=== PATIENT | male | born 1980 | race Caucasian/White ===

== ENCOUNTER 2024-06-05 00:35 | Emergency (ER) | payer OTHER, SELFPAY ==
[2024-06-05 00:38] VITALS: BP 128/84
[2024-06-05 00:57] VITALS: BMI 25.6
--- NOTE | 2024-06-05 01:15 | EDRN ---
About 10 minutes after pt's workout yesterday afternoon, pt developed abdominal pain which has been constant and is getting worse. Pt took ibuprofen which did not help the pain. Pt notes pain worse when he stands up straight. Pt denies cp, sob,
fever/chills/cough, n/v/d/c, urinary symptoms, weakness, dizziness. Last BM 2 hours ago.
[2024-06-05 01:17] LABS: Urine Albumin Trace (Neg - Trace); Urine Bilirubin Negative (Negative); Urine Character Clear (Clear); Urine Color Yellow; Urine Glucose Negative (Negative); Urine Ketone Negative (Negative); Urine Leukocyte Negative (Negative); Urine Nitrite Negative (Negative); Urine Occult Blood Negative (Negative); Urine Urobilinogen Negative (Neg - 1+)
--- NOTE | 2024-06-05 01:19 | ED.GENMED ---
History of Present Illness
<HONG Noel - Last Filed: 06/05/24 03:28>
General
Chief Complaint: Abdominal Pain
Source: patient
Time Seen by Provider: 06/05/24 00:43
History of Present Illness
History of Present Illness:
This is a 44 y/o male without significant PMH who presents to the ED with CC of abdominal pain. Pt admits the periumbilical pain that began after he worked out this afternoon and was driving home he thought he had an upset stomach. He denies doing
anything out of the ordinary at the gym and states it was his usual workout. He took 200mg of Ibuprofen at 6pm and 400mg at 9pm without any improvement in pain. He drove himself to the ED and states that bumps in the road made the pain worse (8/10).
Current pain while lying with HOB at 45 degrees is 5/10. He denies any radiation of the pain. He met with a provider ace via Telehealth who suggested it was MSK related. He tried to go to sleep earlier tonight at home but could not find a
comfortable position and decided to come to the ED. Admits to eating a meal prior to coming to the ED without any worsening in sx. Denies any past abdominal surgeries. Linear scar on inferior chest from excision of BCC. Denies tobacco use. Admits to
social alcohol use 1-2x per wk. Denies F/N/V, back pain, testicular pain, chest pain, headache, palpitations, dyspnea and diarrhea.
Phy Exam
<HONG Noel - Last Filed: 06/05/24 03:28>
Physical Exam
Physical Exam:
Skin: Organ, soft, well-hydrated; turgor with instant recoil
Head: Atraumatic, normocephalic; scalp, pink freely moveable without tenderness
Eyes: sclerae non-icteric; PERRLA; EOMI; no lid lag; red reflex present
Chest and Lungs: muscle and respiratory effort symmetric without use of accessory muscles; vesicular breath sounds without adventitious sounds; even, quiet breathing; linear fibrotic plaque on left inferior chest
Heart: No lifts or heaves visible; regular rate and rhythm; No murmurs, rubs or gallops
PV: radial, dorsalis pedis and posterior tibial pulses all intact bilaterally; no edema, swelling, varicosities or tenderness in LE
Abd: soft, flat, non-distended abdomen; aorta midline with no visible pulsation; normoactive bowel sounds; mild tenderness on palpation periumbilical and epigastric; no CVA tenderness
General Physical Exam
General Presentation: well appearing
General age: appears stated age
General Skin: warm and dry
General Habitus: normal
General Mental: alert
General Hydration: appears well hydrated
Course
<Karen Mendez, [facility] - Last Filed: 06/05/24 03:28>
Orders/Labs/Results
Orders:
Orders
06/05/24 01:05
Complete Blood Count/With Diff Urgent
Comprehensive Metabolic Panel Urgent
Lipase Urgent
06/05/24 01:11
Urinalysis Reflex To Culture Urgent
Date Specimen was Collected: 06/05/24
Time Specimen was Collected: 01:10
06/05/24 01:31
Ketorolac [Toradol] 30 mg IM NOW STA
06/05/24 01:32
Iohexol [Omnipaque] See Protocol PO NOW STA
06/05/24 01:33
CT Abd/pel W Iv And Oral Contr Urgent
Comment:
Reason For Exam: periumiblical abdominal pain x 1 day-progressive
06/05/24 01:41
Ketorolac [Toradol] 30 mg IV NOW STA
Abnormal Lab Results
06/05/24
01:05
RBC 4.36 L 10^6/uL
(4.70-6.10)
Hct 38.8 L %
(39.0-52.0)
MCH 31.4 H pg
(27.0-31.0)
AST 88 H U/L
(17-59)
06/05/24 01:05
06/05/24 01:05
Vital Signs
Initial and Last Documented VS:
Initial Vital Signs
Pulse Resp BP Pulse Ox
64 18 128/84 99
06/05/24 00:38 06/05/24 00:38 06/05/24 00:38 06/05/24 00:38
Last Documented Vital Signs
Pulse Resp BP Pulse Ox
55 14 112/81 99
06/05/24 04:28 06/05/24 04:28 06/05/24 04:28 06/05/24 04:28
<Venus Moreau, DO - Last Filed: 06/05/24 05:11>
Orders/Labs/Results
Orders:
Orders
06/05/24 01:05
Complete Blood Count/With Diff Urgent
Comprehensive Metabolic Panel Urgent
Lipase Urgent
06/05/24 01:11
Urinalysis Reflex To Culture Urgent
Date Specimen was Collected: 06/05/24
Time Specimen was Collected: 01:10
06/05/24 01:31
Ketorolac [Toradol] 30 mg IM NOW STA
06/05/24 01:32
Iohexol [Omnipaque] See Protocol PO NOW STA
06/05/24 01:33
CT Abd/pel W Iv And Oral Contr Urgent
Comment:
Reason For Exam: periumiblical abdominal pain x 1 day-progressive
06/05/24 01:41
Ketorolac [Toradol] 30 mg IV NOW STA
Abnormal Lab Results
06/05/24
01:05
RBC 4.36 L 10^6/uL
(4.70-6.10)
Hct 38.8 L %
(39.0-52.0)
MCH 31.4 H pg
(27.0-31.0)
AST 88 H U/L
(17-59)
06/05/24 01:05
06/05/24 01:05
Vital Signs
Initial and Last Documented VS:
Initial Vital Signs
Pulse Resp BP Pulse Ox
64 18 128/84 99
06/05/24 00:38 06/05/24 00:38 06/05/24 00:38 06/05/24 00:38
Last Documented Vital Signs
Pulse Resp BP Pulse Ox
55 14 112/81 99
06/05/24 04:28 06/05/24 04:28 06/05/24 04:28 06/05/24 04:28
<HONG Noel - Last Filed: 06/05/24 03:28>
*Critical Care Note
Total Time (30-74mins, 75-104mins- exclusive of procedures): Not Applicable
<Venus Moreau DO - Last Filed: 06/05/24 05:11>
*Radiology
Radiology exam reviewed: radiology read reviewed (CT is unremarkable save for mild constipation. normal appendix.)
*Pulse Oximetry
Patient hypoxic: no
ED Attending Note
<HONG Noel - Last Filed: 06/05/24 03:28>
-
Portions of this chart may have been created with voice recognition software.� Occasional wrong word or��sound alike� substitutions may have occurred due to the inherent limitations of voice recognition software.
<Venus Moreau DO - Last Filed: 06/05/24 05:11>
ED Attending Note
Patient seen and examined by attending physician: Yes
I performed the substantive portion of visit, reviewed & personally made and approve the management plan that is documented in note by myself or KARL.: Yes
ED Attending Note:
This is a 44-year-old gentleman with no significant past medical history save for prior history of focal basal cell carcinoma of forehead, chest wall, previous excisions. Follows regularly with PCP as well as dermatology.
He takes no medicines on a daily basis.
He exercises on a regular basis and this afternoon after exercising he noted some mild mid to upper abdominal discomfort, initially very mild in nature but has been persistent and slowly worsening throughout the evening, worse tonight with
difficulty sleeping which prompted ED evaluation. He does admit to very mild nausea late afternoon and initially he thought the pain was related to 'getting a stomachache' Nausea has resolved, he has had no vomiting. Pain is not worsened or
improved with meals. He denies back pain nor flank pain, no chest pain or coughing or shortness of breath, no fever nor chills. No diarrhea nor constipation, no dysuria and urgency and or hematuria. No history of similar episodes of pain. He
denies insightful injury, denies acute pain while lifting/working out this afternoon.
He did take 1 ibuprofen/200 mg around 6 PM and then another 2 [id number] ibuprofen around 9 PM. Thus far no significant relief but admits that he is feeling somewhat improved since arrival to the ED.
He has driven himself to the ED admits that while driving, going over the bumps, pain was much worse.
GENERAL: 44-year-old gentleman appears his stated age, bright and alert, pleasant, appears in no acute distress. 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 Reading a book.
EYE: anicteric
NECK: Supple, nontender, no meningismus, no significant adenopathy.
ENT: oral mucosa is moist. No rhinorrhea.
CARDIAC: Regular rate and rhythm. no murmur.
LUNGS: Clear breath sounds bilaterally, no acute respiratory distress, no wheezes/rales/rhonchi
ABDOMEN: Soft, nondistended, mild tenderness with deep palpation periumbilical as well as mild tenderness epigastric, suprapubic and right lower quadrant, no r/g, no cvat. normoactive BS. No palpable masses. No palpable hernia defect.
NEUROLOGICAL: Alert and oriented x3, no focal neuro deficits. Gait is steady.
SKIN: Warm and dry, normal color, skin intact. No rash.
MUSCULOSKELETAL: No C/C/E. peripheral pulses are full and equal b/l. No palpable tenderness.
PSYCH: Normal and appropriate interaction.
Concern for early appendicitis, abdominal wall muscle strain, other consideration is internal hernia, mesenteric adenitis, diverticulitis.
Will medicate for pain with an IV dose of Toradol.
Will check labs, urinalysis.
Due to concern for potential early appendicitis will check CT abdomen pelvis with oral and IV contrast.
05:00
Pt notes improvement, resolution of abdominal pain.
CT unremarkable save for mild constipation.
labs and urinalysis are WNL.
Repeat abdominal exam is soft, no appreciable tenderness.
I suspect abdominal wall muscle strain vs constipation as cause for pain.
Recommend he stay well hydrated, high fiber foods, continue ibuprofen as needed for pain.
Follow up with PCP for recheck.
Return precautions discussed.
Discharge Plan
Departure
Patient Disposition: Home (Routine Discharge)
Date of Disposition: 06/05/24
Time of Disposition: 05:08
Patient with high blood pressure during this ER visit?: No
Condition: Good
Discharge Problem:
Abdominal pain, acute, periumbilical
Instructions: Muscle Strain (DC), Abdominal Pain
Prescriptions:
No Action
No Current Medications
0
Referrals:
Katy Romero MD [Family Provider] - As needed
Interventions
Interventions:
*Risk Screen - Suicide Last Done: 06/05/24 00:38
*General Assessment Last Done: 06/05/24 00:57
*Neglect/Abuse Screening Last Done: 06/05/24 00:38
*ED COVID-19 Vaccine History Last Done: 06/05/24 00:57
HB-Ayrwez-Rnuvigwyia Assessment Last Done: 06/05/24 01:06
Discharge Date and Time
Print Language: MONGOLIAN
[2024-06-05 01:22] LABS: % Basophils 0.6 % (0-2); % Immature Granulocytes 0.1 % (0-0.5); % Monocytes 8.7 % (1.7-9.3); % Neutrophils 49.6 % (42.2-75.2); Absolute Eosinophils 0.1 10^3/uL (0-0.7); Absolute Lymphocytes 2.8 10^3/uL (1.2-3.4); Absolute Monocytes 0.6 10^3/uL (0.1-0.6); Absolute Neutrophils 3.5 10^3/uL (1.4-6.5); Hematocrit 38.8 % (39.0-52.0); Hemoglobin 13.7 g/dL (13.0-18.0); Mean Corp Hgb Conc. 35.3 g/dL (33.0-37.0); Mean Corpuscular Hgb 31.4 pg (27.0-31.0); Mean Platelet Volume 8.7 fL (7.4-10.4); Nucleated Red Blood Cells % 0 % (-); Platelet Count 195 10^3/uL (130-400); Red Blood Cell Count 4.36 10^6/uL (4.70-6.10); Red Cell Dist. Width 12.3 % (11.5-14.5)
[2024-06-05 01:33] LABS: ALT (SGPT) 39 U/L (0-50); AST (SGOT) 88 U/L (17-59); Albumin 4.7 g/dl (3.5-5.0); Alkaline Phosphatase 73 U/L (38-126); Blood Urea Nitrogen 19 mg/dl (9-20); Calcium 9.5 mg/dl (8.4-10.2); Carbon Dioxide 26 mmol/L (22-30); Chloride 104 mmol/L (98-107); Estimated Creatinine Clearance 115 ml/min; Glucose 99 mg/dl (70-99); Potassium 4.2 mmol/L (3.5-5.1); Sodium 138 mmol/L (135-145); Total Bilirubin 1.2 mg/dl (0.2-1.3); Total Protein 7.2 g/dl (6.3-8.2); eGFR > 60.00
[2024-06-05] MEDS: OMNIPAQUE 50 ML PO (01:45)
[2024-06-05] MEDS: TORADOL 30 MG IV (01:46)
[2024-06-05 01:51] VITALS: BP 124/76
[2024-06-05 01:53] LABS: Lipase 224 U/L (23-300)
[2024-06-05 04:28] VITALS: BP 112/81
== END 2024-06-05 05:14 | disposition home or self-care (01) ==
LOC: EMR 00:35
PROVIDERS: EMERGENCY PHYSICIAN Emergency Medicine; FAMILY PHYSICIAN Family Medicine
DX: R10.33 Periumbilical pain (principal); Z85.828 Personal history of other malignant neoplasm of skin
CPT/HCPCS: 99284; 96374; 74177; 80053; 81003; 83690; 85025; Q9967

== ENCOUNTER 2024-08-02 06:18 | Day surgery (SDC) | payer OTHER, SELFPAY | END 2024-08-02 10:40 | disposition home or self-care (01) | LOC: GI 06:18 | PROVIDERS: ATTENDING PHYSICIAN Surgery | DX: R94.8 Abnormal results of function studies of other organs and systems (principal); K64.9 Unspecified hemorrhoids; R93.3 Abnormal findings on diagnostic imaging of other parts of digestive tract | CPT/HCPCS: 45378 ==